=== PATIENT | male | born 1965 | race Caucasian/White ===

== ENCOUNTER 2025-06-11 18:01 | Emergency (ER) | payer MEDICARE, SELFPAY ==
[2025-06-11 18:10] VITALS: BP 148/85
--- NOTE | 2025-06-11 21:18 | ED.GENMED ---
History of Present Illness
General
Chief Complaint: Musculo-Skeletal Complaint
Time Seen by Provider: 06/11/25 21:18
History of Present Illness
History of Present Illness:
FOCUSED PAST MEDICAL HISTORY
- Cerebral palsy, has had PE, bipolar disorder
REVIEW OF OLD RECORDS
- The patient was admitted in 2016 related to anemia
Note:
CHIEF COMPLAINT(S)
Back pain and spinal instability.
HISTORY OF PRESENT ILLNESS
The patient is a 59-year-old male with a history of spinal instability diagnosed in the . He reports a long-standing issue where he experienced the sensation of his vertebrae being misaligned, primarily in the thoracic and lumbar regions. The
patient describes a recent exacerbation of symptoms, indicating that his spine felt like it was collapsing and that he lost energy, accompanied by electric-like pain and an inability to stand at times. This has resulted in decreased range of motion
and strength in his legs, with him needing assistance to get out of bed. The condition has notably worsened over the past several months, and he currently feels weakness in executing basic leg movements. There has not been any recent imaging of his
lumbar spine for over ten years.
The patient experiences increased discomfort when sitting in certain positions, affecting his pelvic alignment. He is currently wearing a thoracolumbar orthosis to support his back and has a good active range of motion in his lower extremities. The
patient has not seen a insurance account specialist recently due to a lack of insurance and resources, and he reports no recent follow-up with a spinal surgeon. He expressed reluctance in pursuing surgery but is interested in a diagnosis to better manage his
symptoms.
ADDITIONAL HISTORY OBTAINED FROM SOURCES OTHER THAN THE PATIENT
According to the patient�s roommate, who is also his best friend, the spinal instability causes significant mobility issues.
SOCIAL DETERMINANTS AFFECTING HEALTH
The patient mentioned that he has no family support and limited financial resources. He lives with a roommate who functions as his primary support system. Due to his financial situation, he lacks health insurance, which impedes his ability to seek
specialist care or follow-up services.
REVIEW OF SYSTEMS
- Musculoskeletal: Decreased range of motion and strength in the lower extremities.
- Neurological: Electric-like pain in the spine, weakness in standing and basic movements.
PHYSICAL EXAM
General: Alert, no acute distress. Known history of cerebral palsy
Skin: Warm, dry.
Head: Normocephalic, atraumatic.
Neck: Supple, trachea midline.
Eye Ears, nose, mouth and throat: Oral mucosa moist.
Cardiovascular: Normal peripheral perfusion, No edema.
Respiratory: Respirations are non-labored.
Gastrointestinal: Abdomen nondistended
Back: The patient came in wearing extensive thoracolumbar bracing but has no significant midline tenderness
Musculoskeletal: Fairly good active range of motion in large lower extremities, although patient reports that it is decreased compared to baseline.
Neurological: Alert and oriented to person, place, time, and situation, fairly good strength in both lower extremities and is antigravity
Psychiatric: Cooperative, appropriate mood & affect.
PLAN
1. Proceed with thoracic and lumbar spine X-rays to assess structural integrity and spinal alignment.
2. Provide the patient with contact information for spine specialists and neurosurgeons for follow-up.
3. Discuss management options with potential orthopedists once imaging results are available.
4. Consider connecting the patient with community resources or sr. social media & mobile manager to aid in obtaining health insurance if applicable.
DIFFERENTIAL DIAGNOSIS
The Differential Diagnosis includes, in no particular order and is not limited to:
1. Spinal instability
2. Lumbar disc herniation
3. Degenerative disc disease
4. Spinal stenosis
5. Osteoarthritis of the spine
6. Compression fracture
7. Ankylosing spondylitis
8. Lumbar radiculopathy
9. Vertebral body fracture
10. Spondylolisthesis
RADIOLOGY
- X-rays of the T and L-spine obtained
- T-spine relatively unremarkable, L-spine's shows some degree of anterolisthesis
UPDATE
-SUMMARY OF ENCOUNTER
The patient, a 59-year-old male, was seen in the emergency department due to back pain and spinal instability, with concerns about alignment issues mainly in the thoracic and lumbar regions. During the examination, the alignment of the thoracic
spine appeared good, and the lumbar spine showed minor alignment issues consistent with some degree of anterior spondylolisthesis, although not severe. The patient is currently wearing a thoracolumbar orthosis. There was discussion regarding the
lack of integrated systems with [facility], preventing seamless communication of records with their network. The patient was advised on potential follow-up with specialists in the region and offered contact information for local spine doctors and
neurosurgeons, such as those from [facility].
PLAN
The patient is advised to proceed with X-rays for the thoracic and lumbar spine to further evaluate structural integrity and spinal alignment. The patient should follow up with a insurance account specialist for further evaluation and management. Connections
with local specialists such as [facility] orthopedics and [facility] will be provided to assist the patient in getting specialist care.
MANAGEMENT OF THE PATIENTS CARE WAS DISCUSSED WITH
The patient was offered information regarding local neurosurgeons and spine specialists outside of the current system due to limited collaboration with existing ER specialists.
PATIENT EDUCATION AND COUNSELING
The patient was informed about the necessity of follow-up with spine specialists and provided with the names of potential local doctors for further management of his spinal instability.
FOLLOW-UP INSTRUCTIONS
The patient was instructed to contact specialists for spinal evaluation, with specific references to [facility] and [facility] specialists and encouraged to follow up with outpatient care for comprehensive management of spinal
instability.
MEDICAL DECISION MAKING
- Number and Complexity of Problems Addressed: Chronic conditions affecting care include spinal instability, lumbar disc herniation, degenerative disc disease, spinal stenosis, osteoarthritis of the spine, compression fracture, ankylosing
spondylitis, lumbar radiculopathy, vertebral body fracture, and spondylolisthesis.
- Data:
Category 1
Non-emergency department records reviewed, if applicable. Clinical information was obtained from an independent historian, specifically the patients roommate, who mentioned significant mobility issues due to spinal instability.
- Risk:
Consideration of possible escalation of care including imaging was explained to the patient. The need for specialty care was emphasized given the complexity of his spinal condition.
DIAGNOSIS
1. Patient concern for spinal Instability
2. Spondylolisthesis (M43.1)
Past History
Past History
ED Past Medical History: Psychiatric and Other (Neuromuscular disorder, Cerebral Palsy, dystonia, ataxia, ambulatory dysfunction, PE, DVT, ICB, PUD, ADHD, history of alcohol abuse, anxiety, bipolar disorder, history of substance abuse, depression,
suicidal ideation)
ED Past Surgical History: Appendectomy and Tonsilectomy
Social History
Tobacco: Smoker
Alcohol: Other (Unclear)
Drug: Other (Unclear)
Personal: Single
Living: other (significant other)
Employment: Not employed
Family History
Family History: Unable to obtain
Phy Exam
Physical Exam
Physical Exam:
See HPI
Course
Orders/Labs/Results
Orders:
Orders
06/11/25 21:26
CR Lumbar Spine 2 Or 3 Views Urgent
Reason For Exam: has CP and reports 'spinal instability worsening'
CR Thoracic Spine 2 Views Urgent
Comment:
Reason For Exam: has CP and reports 'spinal instability worsening'
Vital Signs
Initial and Last Documented VS:
Initial Vital Signs
Temp Pulse Resp BP Pulse Ox
37.1 C 75 15 148/85 97
06/11/25 18:10 06/11/25 18:10 06/11/25 18:10 06/11/25 18:10 06/11/25 18:10
Last Documented Vital Signs
Temp Pulse Resp BP Pulse Ox
37.1 C 75 15 148/85 97
06/11/25 18:10 06/11/25 18:10 06/11/25 18:10 06/11/25 18:10 06/11/25 21:19
*Pulse Oximetry
SaO2: 97
Oxygen Mode of Delivery: Room air
Patient hypoxic: no
*Critical Care Note
Total Time (30-74mins, 75-104mins- exclusive of procedures): Not Applicable
ED Attending Note
-
Portions of this chart may have been created with voice recognition software.� Occasional wrong word or��sound alike� substitutions may have occurred due to the inherent limitations of voice recognition software.
Discharge Plan
Departure
Patient Disposition: Home (Routine Discharge)
Date of Disposition: 06/11/25
Time of Disposition: 22:37
Patient with high blood pressure during this ER visit?: Yes
Discharge Problem:
Spine disorder, Cerebral palsy
Instructions: BLOOD PRESSURE
Prescriptions:
No Action
clonazepam 1 MG tablet
1 mg PO Q6HPRN PRN (Reason: anxiety) Qty: 0 0RF
oxycodone 5 MG tablet
5 mg PO Q4HPRN PRN (Reason: MODERATE PAIN) Qty: 10 0RF
oxycodone 5 MG tablet
5 mg PO Q6HPRN PRN (Reason: mod to severe pain) Qty: 15 0RF
Saccharomyces boulardii 250 MG capsule
250 mg PO PRN PRN (Reason: when on abx)
Referrals:
Ronnie Harrell DO [Non-Admitting Privileges, Orthopedics]
Frederick Pandya DO [Active, Neurosurgery]
René Pacheco MD [Active, Orthopedics]
Uday Cloud DO [Family Provider, Family Practice]
Activity Restrictions/Additional Instructions:
I have given the contact information for insurance account specialist: Dr. Pandya (neurosurgeon through [place]), Dr. Pacheco (orthopedic spine surgeon through [facility]), Dr. Harrell (orthopedic spine surgeon through [facility] orthopedics). Return if worse
or other concerns.
Interventions
Interventions:
*Risk Screen - Suicide Last Done: 06/11/25 18:10
*General Assessment Last Done: 06/11/25 18:10
*Neglect/Abuse Screening Last Done: 06/11/25 18:10
*ED COVID-19 Vaccine History Last Done: 06/11/25 18:10
*ED Influenza Vaccine History Last Done: 06/11/25 18:10
Discharge Date and Time
Print Language: TELUGU
[2025-06-11 23:05] VITALS: BP 141/68; BMI 23.1
== END 2025-06-11 23:23 | disposition home or self-care (01) ==
LOC: EMR 18:01
PROVIDERS: EMERGENCY PHYSICIAN Emergency Medicine; FAMILY PHYSICIAN Family Medicine
DX: M53.9 Dorsopathy, unspecified (principal); G80.9 Cerebral palsy, unspecified; M53.2X9 Spinal instabilities, site unspecified; F17.200 Nicotine dependence, unspecified, uncomplicated; Z59.71 Insufficient health insurance coverage; Z63.8 Other specified problems related to primary support group; Z86.718 Personal history of other venous thrombosis and embolism; Z87.11 Personal history of peptic ulcer disease; Z90.49 Acquired absence of other specified parts of digestive tract
CPT/HCPCS: 99283; 72070; 72100